=== PATIENT | male | born 1990 | race American Indian/Alaskan Native ===

== ENCOUNTER 2018-02-23 20:31 | Emergency (ER) | payer SELFPAY ==
--- NOTE | 2018-02-23 21:39 | Emergency Department Report ---
ED Fall HPI - General Chief Complaint: Fall Stated Complaint: FALL Time Seen by Provider: 02/23/18 20:40 Source: patient, EMS Mode of arrival: Stretcher - History of Present Illness Initial Comments: Patient is 27-year-old male that presents with complaints of a fall. Patient states he was at a restaurant and slipped on a wet floor. Patient states he landed on his right shoulder middle back and back of his head. Patient states pain is 10 out of 10 in all areas. Patient complains of pain to his right shoulder, right elbow, back of his head, neck, middle and upper and lower back. Patient states the pain is better with rest. Patient arrived by EMS on a c- collar and backboard. Patient denies loss of consciousness. Patient states the pain is better with rest and worse with movement. Patient denies chest pain. Patient denies shortness of breath. MD Complaint: fall -: Sudden Fall From: standing When Fall Occurred: [address] Fall Occurred: other Loss of Consciousness: none Prolonged Down Time?: no Symptoms Prior to Fall: none Location: head, neck, back Location - Extremities: Right: Shoulder, Elbow Severity: severe Severity scale (0 -10): 10 Quality: sharp Context: tripped/slipped Associated Symptoms: headache, neck pain. denies: numbness, weakness, chest paint, shortness of breath, abdominal pain, hematuria, unable to walk, lightheaded, vertigo, confusion - Related Data Previous Rx's Medication Instructions Recorded Last Taken Type Acetaminophen/Codeine [Tylenol 1 tab PO Q6H PRN #10 tab 02/24/18 Unknown Rx /Codeine # 3 tab] Metaxalone [Skelaxin] 800 mg PO TID PRN #10 tablet 02/24/18 Unknown Rx Allergies Allergy/AdvReac Type Severity Reaction Status Date / Time No Known Allergies Allergy Unverified 02/23/18 20:53 ED Review of Systems ROS: Stated complaint: FALL Other details as noted in HPI Constitutional: denies: chills, fever Eyes: denies: eye pain, eye discharge, vision change ENT: denies: ear pain, throat pain Respiratory: denies: cough, shortness of breath, wheezing Cardiovascular: denies: chest pain, palpitations Endocrine: no symptoms reported Gastrointestinal: denies: abdominal pain, nausea, diarrhea Genitourinary: denies: urgency, dysuria Musculoskeletal: as per HPI, back pain. denies: joint swelling, arthralgia Skin: denies: rash, lesions Neurological: as per HPI, headache. denies: weakness, paresthesias Psychiatric: denies: anxiety, depression Hematological/Lymphatic: denies: easy bleeding, easy bruising ED Past Medical Hx - Past Medical History Previous Medical History?: Yes Additional medical history: Hernia - Surgical History Past Surgical History?: Yes Additional Surgical History: hernia repair x 2, cyst removal - Family History Family history: no significant - Social History Smoking Status: Current Every Day Smoker Substance Use Type: None - Medications Home Medications: Home Medications Medication Instructions Recorded Confirmed Last Taken Type Acetaminophen/Codeine [Tylenol 1 tab PO Q6H PRN #10 tab 02/24/18 Unknown Rx /Codeine # 3 tab] Metaxalone [Skelaxin] 800 mg PO TID PRN #10 tablet 02/24/18 Unknown Rx ED Physical Exam - General Limitations: No Limitations General appearance: alert, in no apparent distress - Head Head exam: Present: atraumatic, normocephalic - Eye Eye exam: Present: normal appearance - ENT ENT exam: Present: mucous membranes moist - Neck Neck exam: Present: normal inspection, tenderness (at C5) - Respiratory Respiratory exam: Present: normal lung sounds bilaterally. Absent: respiratory distress - Cardiovascular Cardiovascular Exam: Present: regular rate, normal rhythm. Absent: systolic murmur, diastolic murmur, rubs, gallop - GI/Abdominal GI/Abdominal exam: Present: soft, normal bowel sounds - Rectal Rectal exam: Present: deferred - Extremities Exam Extremities exam: Present: normal inspection, tenderness (tenderness to right shoulder and right elbow), other (patient able to move all 4 extremities) - Back Exam Back exam: Present: normal inspection, tenderness, vertebral tenderness ( tenderness noted T11-T12 and L1-L2) - Neurological Exam Neurological exam: Present: alert, oriented X3 - Psychiatric Psychiatric exam: Present: normal affect, normal mood - Skin Skin exam: Present: warm, dry, intact, normal color. Absent: rash ED Course Vital Signs 02/23/18 02/23/18 02/24/18 20:54 23:15 01:00 Temperature 99.2 F 98.7 F Pulse Rate 73 66 Respiratory 18 16 18 Rate Blood Pressure 144/90 Blood Pressure 136/84 [Right] O2 Sat by Pulse 99 99 98 Oximetry - Reevaluation(s) Reevaluation #1: Patient examined immediately upon arrival into room 25. Patient taken off the backboard and back examined. CT exam notes. Patient was rolled keeping C- spine midline at all times. Due to the exam findings we'll do a CT and x-rays. 02/23/18 20:41 Reevaluation #2: All CTs reviewed. No fractures of the C-spine, L-spine, T-spine. C-collar removed and patient will have plain films done 02/23/18 23:05 Reevaluation #3: Skull spell resulting patient. Patient voiced understanding of results. Discussed discharge and return to ER instructions. Patient voiced understanding of all instructions. Patient to follow up with primary care and orthopedics in 2-3 days. Patient ambulatory and room. 02/24/18 00:24 ED Medical Decision Making - Radiology Data Radiology results: report reviewed FINAL REPORT EXAM: CT THORACIC SPINE WO CON HISTORY: ttp. fall pain TECHNIQUE: Axial helical imaging through the thoracic spine with sagittal and coronal reformatted images obtained. Comparison: CT cervical spine also performed today FINDINGS: Bony alignment is normal. The vertebral heights and disc spaces are maintained. There is no evidence of bony canal or foraminal stenosis. Visualization detail the contents of the thoracic canal is limited by artifact. There is no evidence of fracture or subluxation. The paraspinous soft tissues are unremarkable. IMPRESSION: 1. No evidence of fracture or subluxation. Transcribed By: ED Dictated By: ORQUIDEA ROSA MD Electronically Authenticated By: ORQUIDEA ROAS MD Signed Date/Time: 02/23/182224 FINAL REPORT EXAM: CT LUMBAR SPINE WO CON HISTORY: ttp. fall pain TECHNIQUE: Axial helical imaging through the lumbar spine with sagittal and coronal reformatted images obtained. Comparison: CT thoracic spine also performed today FINDINGS: Bony alignment is normal. The vertebral heights and disc spaces are maintained. Visualization detail the contents of the lumbar canal is limited by artifact. There is no evidence of fracture or subluxation. The paraspinous soft tissues are unremarkable. IMPRESSION: 1. No evidence of fracture or subluxation. Transcribed By: ED Dictated By: ORQUIDEA ROSA MD Electronically Authenticated By: ORQUIDEA ROSA MD Signed Date/Time: 02/23/182227 FINAL REPORT EXAM: CT HEAD/BRAIN WO CON HISTORY: ttp. fall pain TECHNIQUE: 2.5 millimeter axial images from the skullbase to the vertex. Comparison: None FINDINGS: There is no evidence of an acute intracranial process, intracranial hemorrhage or mass effect. The ventricles are normal size. The visualized portions of the orbits, paranasal and mastoid sinuses are unremarkable. There is no evidence of fracture. IMPRESSION: 1. No evidence of an acute intracranial process, intracranial hemorrhage or mass effect. 2. No evidence of fracture. Transcribed By: ED Dictated By: ORQUIDEA ROSA MD Electronically Authenticated By: ORQUIDEA ROSA MD Signed Date/Time: 02/23/182203 FINAL REPORT EXAM: CT CERVICAL SPINE WO CON HISTORY: ttp. fall pain TECHNIQUE: Axial helical imaging through the cervical spine with sagittal and coronal reformatted images obtained. Comparison: None FINDINGS: Bony alignment is normal. The vertebral heights and disc spaces are maintained. There is no evidence of fracture or subluxation. Visualization detail the contents of the cervical canal is limited by artifact. The paraspinous soft tissues are unremarkable. IMPRESSION: 1. No evidence of fracture or subluxation. Transcribed By: ED Dictated By: OQRUIDEA ROSA MD Electronically Authenticated By: ORQUIDEA ROSA MD Signed Date/Time: 02/23/182206 FINAL REPORT EXAM: XR ELBOW 2V RT HISTORY: fall pain TECHNIQUE: Frontal and lateral views right elbow Comparison: None FINDINGS: There is no evidence of fracture or subluxation. The joint spaces are maintained. The soft tissues are unremarkable. IMPRESSION: 1. No evidence of fracture or subluxation. Transcribed By: ED Dictated By: ORQUIDEA ROSA MD Electronically Authenticated By: ORQUIDEA ROSA MD Signed Date/Time: 02/23/18 7912 FINAL REPORT EXAM: XR SHOULDER 2+V RT HISTORY: fall pain. TECHNIQUE: Frontal and Y-views right shoulder Comparison: None FINDINGS: There is no evidence of fracture or subluxation. The soft tissues are unremarkable. IMPRESSION: 1. No evidence of fracture or subluxation. Transcribed By: ED Dictated By: ORQUIDEA ROSA MD Electronically Authenticated By: ORQUIDEA ROSA MD Signed Date/Time: 02/23/18 1511 - Medical Decision Making Patient is a 27-year-old male that presents to the emergency room after falling a restaurant on a wet floor. Patient had multiple complaints to include right elbow pain, right shoulder pain, neck pain, thoracic/lumbar back pain, and headache. All CTs and x-rays were negative. Patient given discharge instructions. - Differential Diagnosis fx. strain contusion. sprain. fall. zuniga. head injury Critical care attestation.: If time is entered above; I have spent that time in minutes in the direct care of this critically ill patient, excluding procedure time. ED Disposition Clinical Impression: Right elbow pain, Neck pain Fall Qualifiers: Encounter type: initial encounter Qualified Code(s): W19.XXXA - Unspecified fall, initial encounter Right shoulder pain Qualifiers: Chronicity: acute Qualified Code(s): M25.511 - Pain in right shoulder Shoulder contusion Qualifiers: Encounter type: initial encounter Laterality: right Qualified Code(s): S40.011A - Contusion of right shoulder, initial encounter Contusion of right elbow Qualifiers: Encounter type: initial encounter Qualified Code(s): S50.01XA - Contusion of right elbow, initial encounter Head injury Qualifiers: Encounter type: initial encounter Qualified Code(s): S09.90XA - Unspecified injury of head, initial encounter Back pain Qualifiers: Back pain location: back pain in unspecified location Chronicity: acute Back pain laterality: midline Qualified Code(s): M54.9 - Dorsalgia, unspecified Low back sprain Qualifiers: Encounter type: initial encounter Qualified Code(s): S33.5XXA - Sprain of ligaments of lumbar spine, initial encounter Disposition: DC-01 TO HOME OR SELFCARE Is pt being admited?: No Does the pt Need Aspirin: No Condition: Stable Instructions: Minor Head Injury (ED), Acute Low Back Pain (ED), Contusion in Adults (ED), Shoulder Sprain (ED), Cervical Sprain (ED), Back Pain (ED) Additional Instructions: Patient follow up with primary care and orthopedist in 2-3 days. Patient to rest. Patient to avoid exercise or strenuous activity until cleared by orthopedist and primary care. R.I.C.E. Patient to return to ER if condition worsens. Patient To take Tylenol and ibuprofen when necessary for pain Prescriptions: Acetaminophen/Codeine [Tylenol /Codeine # 3 tab] 1 tab PO Q6H PRN #10 tab PRN Reason: Pain , Severe (7-10) Metaxalone [Skelaxin] 800 mg PO TID PRN #10 tablet PRN Reason: Spasms Referrals: PRIMARY CARE, [Primary Care Provider] - 2-3 Days Time of Disposition: 00:28
--- NOTE | 2018-02-23 22:06 | Cat Scan Report ---
FINAL REPORT EXAM: CT HEAD/BRAIN WO CON HISTORY: ttp. fall pain TECHNIQUE: 2.5 millimeter axial images from the skullbase to the vertex. Comparison: None FINDINGS: There is no evidence of an acute intracranial process, intracranial hemorrhage or mass effect. The ventricles are normal size. The visualized portions of the orbits, paranasal and mastoid sinuses are unremarkable. There is no evidence of fracture. IMPRESSION: 1. No evidence of an acute intracranial process, intracranial hemorrhage or mass effect. 2. No evidence of fracture.
--- NOTE | 2018-02-23 22:08 | Cat Scan Report ---
FINAL REPORT EXAM: CT CERVICAL SPINE WO CON HISTORY: ttp. fall pain TECHNIQUE: Axial helical imaging through the cervical spine with sagittal and coronal reformatted images obtained. Comparison: None FINDINGS: Bony alignment is normal. The vertebral heights and disc spaces are maintained. There is no evidence of fracture or subluxation. Visualization detail the contents of the cervical canal is limited by artifact. The paraspinous soft tissues are unremarkable. IMPRESSION: 1. No evidence of fracture or subluxation.
--- NOTE | 2018-02-23 22:26 | Cat Scan Report ---
FINAL REPORT EXAM: CT THORACIC SPINE WO CON HISTORY: ttp. fall pain TECHNIQUE: Axial helical imaging through the thoracic spine with sagittal and coronal reformatted images obtained. Comparison: CT cervical spine also performed today FINDINGS: Bony alignment is normal. The vertebral heights and disc spaces are maintained. There is no evidence of bony canal or foraminal stenosis. Visualization detail the contents of the thoracic canal is limited by artifact. There is no evidence of fracture or subluxation. The paraspinous soft tissues are unremarkable. IMPRESSION: 1. No evidence of fracture or subluxation.
--- NOTE | 2018-02-23 22:29 | Cat Scan Report ---
FINAL REPORT EXAM: CT LUMBAR SPINE WO CON HISTORY: ttp. fall pain TECHNIQUE: Axial helical imaging through the lumbar spine with sagittal and coronal reformatted images obtained. Comparison: CT thoracic spine also performed today FINDINGS: Bony alignment is normal. The vertebral heights and disc spaces are maintained. Visualization detail the contents of the lumbar canal is limited by artifact. There is no evidence of fracture or subluxation. The paraspinous soft tissues are unremarkable. IMPRESSION: 1. No evidence of fracture or subluxation.
--- NOTE | 2018-02-23 23:53 | XRay Report ---
FINAL REPORT EXAM: XR ELBOW 2V RT HISTORY: fall pain TECHNIQUE: Frontal and lateral views right elbow Comparison: None FINDINGS: There is no evidence of fracture or subluxation. The joint spaces are maintained. The soft tissues are unremarkable. IMPRESSION: 1. No evidence of fracture or subluxation.
--- NOTE | 2018-02-23 23:54 | XRay Report ---
FINAL REPORT EXAM: XR SHOULDER 2+V RT HISTORY: fall pain. TECHNIQUE: Frontal and Y-views right shoulder Comparison: None FINDINGS: There is no evidence of fracture or subluxation. The soft tissues are unremarkable. IMPRESSION: 1. No evidence of fracture or subluxation.
[2018-02-24 01:01] VITALS: BP 136/84
== END 2018-02-24 01:00 | disposition home or self-care (01) ==
LOC: ED 20:31
DX: S33.5XXA Sprain of ligaments of lumbar spine, initial encounter (principal); S40.011A Contusion of right shoulder, initial encounter; S50.01XA Contusion of right elbow, initial encounter; S09.90XA Unspecified injury of head, initial encounter; F17.200 Nicotine dependence, unspecified, uncomplicated; W01.0XXA Fall on same level from slipping, tripping and stumbling without subsequent striking against object, initial encounter; Y93.89 Activity, other specified; Y92.89 Other specified places as the place of occurrence of the external cause; Y99.8 Other external cause status
CPT/HCPCS: 70450; 72125; 72128; 72131; 99284